=== PATIENT | male | born 1990 | race African-American/Black ===

== ENCOUNTER 2017-12-09 20:24 | Emergency (ER) | payer OTHER | END 2017-12-09 22:10 | disposition home or self-care (01) | LOC: M ED 20:24 | DX: L03.115 Cellulitis of right lower limb (principal); I10 Essential (primary) hypertension | CPT/HCPCS: 99283 ==

== ENCOUNTER 2018-07-26 09:53 | Emergency (ER) | payer OTHER ==
[~2018-07-26] VITALS: Ht 182.9 cm; Wt 91.5 kg
[~2018-07-26 09:53] MED LIST: KEFL500C17 PO
[2018-07-26] MEDS ORDERED: IBUPROFEN 800 MG TAB PO ONE (10:30)
[2018-07-26 11:15] LABS: INFLUENZA A AMPLIFICATION NEGATIVE (NEGATIVE); INFLUENZA B AMPLIFICATION NEGATIVE (NEGATIVE)
[2018-07-26] MEDS ORDERED: MAGICMW SSP (11:22)
[2018-07-26 11:24] VITALS: BP 126/59
[2018-07-27] MEDS ORDERED: AMOX500C PO (18:40)
== END 2018-07-26 11:31 | disposition home or self-care (01) ==
LOC: M ED 09:53
DX: J02.9 Acute pharyngitis, unspecified (principal)

== ENCOUNTER 2018-11-09 09:47 | Emergency (ER) | payer OTHER ==
[~2018-11-09] VITALS: Ht 182.9 cm; Wt 85.6 kg
[~2018-11-09 09:47] MED LIST changes: +AMOX500C PO; +MAGICMW SSP
[2018-11-09] MEDS ORDERED: ZOLO100T PO (09:55)
[2018-11-09] MEDS ORDERED: NAPR500T6 PO (11:13)
[2018-11-09 11:21] VITALS: BP 125/78
== END 2018-11-09 11:28 | disposition home or self-care (01) ==
LOC: M ED 09:47
DX: S76.111A Strain of right quadriceps muscle, fascia and tendon, initial encounter (principal); X50.0XXA Overexertion from strenuous movement or load, initial encounter; Y92.139 Unspecified place military base as the place of occurrence of the external cause; Y99.1 Military activity; F41.9 Anxiety disorder, unspecified; F32.9 Major depressive disorder, single episode, unspecified; Z79.899 Other long term (current) drug therapy